=== PATIENT | female | born 1945 | race Caucasian/White ===

== ENCOUNTER 2017-07-31 13:38 | Inpatient (IN) | payer OTHER ==
[~2017-07-31] VITALS: Ht 162.6 cm; Wt 57.6 kg
[2017-07-31] MEDS ORDERED: Morphine Sulfate 4mg/ml Inj IVP ONE ×2 (13:45→15:45)
[2017-07-31] MEDS ORDERED: Ketorolac 30mg Inj IV ONE (13:45)
[2017-07-31] MEDS ORDERED: Gastrograffin 30ml ORAL PRN (13:45)
[2017-07-31] MEDS ORDERED: Isovue-300 100ml vial INJ PRN (13:45)
[2017-07-31 13:46] VITALS: BP 134/71
--- NOTE | 2017-07-31 14:09 | Emergency Room Report ---
History of Present Illness General Chief Complaint: Abdominal Pain Source: Patient (Robbie Paul M.D.) Present Illness HPI The patient presents with severe left flank pain. It began at 10:30 this AM. It got severe while she was trying to drive to her hospital. She stopped and she felt she was about to pass out. She called 911 from a gas station Paramedics transported patient here. She feels some nausea. The pain is constant and severe radiating to the L groin. There was no vomiting or diarrhea. There was no RUQ or epigastric pain. She denies fevers. She modified her diet in the past few days. No medicines taken for pain. The patient has a history of kidney stones. The last time she had one she had be hospitalized. She didn't have surgery for the stone. No chest pain, headache, rash, dysuria. The severity of pain causes some anxiety as it is out of control. (Robbie Paul M.D.) Allergies: Uncoded Allergies: SULFA (Allergy, Unknown, 07/31/17) Patient History Past Medical History: see triage record Social History: Denies: smoking Social History Narrative Reviewed Nursing Documentation: PMH: Agreed; PSxH: Agreed (Robbie Paul M.D.) Review of Systems All Other Systems: negative except mentioned in HPI (Robbie Paul M.D.) Physical Exam Vital Signs Date Time Temp Pulse Resp B/P (MAP) Pulse Ox O2 Delivery O2 Flow Rate FiO2 07/31/17 13:36 97.8 61 16 178/84 98 Room Air 97.9 Sp02 EP Interpretation: reviewed, normal General Appearance: GCS 15, moderate distress, other - pasty and in pain Head: normocephalic Eyes: bilateral eye normal inspection, bilateral eye PERRL ENT: moist mucus membranes Neck: supple Respiratory: lungs clear, normal breath sounds Cardiovascular #1: regular rate, rhythm Cardiovascular #2: 2+ radial (R), 2+ femoral (R), 2+ femoral (L) Gastrointestinal: normal inspection, normal bowel sounds, soft, no mass, non- distended, no rebound, tenderness - LLQ, scaphoid Genitourinary: no CVA tenderness Musculoskeletal: back normal, gait/station normal, normal range of motion Neurologic: alert, oriented x3, grossly normal Psychiatric: anxious Skin: warm/dry, other - pasty (Robbie Paul M.D.) Medical Decision Making Diagnostic Impression: Primary Impression: Ureteral calculus, left Additional Impressions: Elevated lipase Cystic disease of liver ER Course Patient with h/o renal stones with severe L flank pain. DDx: ureteral stone, aortic aneurism, pyelonephritis, diverticulitis amongst others. Patient in distress with pain. Evaluation with EKG, CT abd and pelvis and labs. Treatment with aggressive hydration and analgesia. Renal stone most likely as she identifies the pain as similar to when she had a stone previously. Patient much improved after meds. Awaiting CT. Labs with normal WBC. Elevated lipase of concern. Etiology unclear. No RUQ or epigastric tenderness. Pain increased again. Morphine repeated. Then Fentanyl given with some relief. Patient taken to CT. Signed out to Dr. Rollins. Dose of Flomax given. Laboratory Tests Test 07/31/17 13:45 07/31/17 14:30 White Blood Count 7.7 K/UL (4.8-10.8) Red Blood Count 4.68 M/UL (4.20-5.40) Hemoglobin 13.7 G/DL (12.0-16.0) Hematocrit 42.2 % (37.0-47.0) Mean Corpuscular Volume 90 FL (80-99) Mean Corpuscular Hemoglobin 29.2 PG (27.0-31.0) Mean Corpuscular Hemoglobin Concent 32.4 G/DL (32.0-36.0) Red Cell Distribution Width 13.1 % (11.6-14.8) Platelet Count 257 K/UL (150-450) Mean Platelet Volume 6.7 FL (6.5-10.1) Neutrophils (%) (Auto) 57.5 % (45.0-75.0) Lymphocytes (%) (Auto) 31.0 % (20.0-45.0) Monocytes (%) (Auto) 8.8 % (1.0-10.0) Eosinophils (%) (Auto) 1.2 % (0.0-3.0) Basophils (%) (Auto) 1.5 % (0.0-2.0) Prothrombin Time 10.4 SEC (9.30-11.50) Prothrombin Time INR 1.0 (0.9-1.1) PTT 24 SEC (23-33) Sodium Level 138 MMOL/L (136-145) Potassium Level 4.8 MMOL/L (3.5-5.1) Chloride Level 105 MMOL/L (98-107) Carbon Dioxide Level 24 MMOL/L (21-32) Anion Gap 9 mmol/L (5-15) Blood Urea Nitrogen 27 mg/dL (7-18) H Creatinine 1.0 MG/DL (0.55-1.30) Estimate Glomerular Filtration Rate mL/min (>60) Glucose Level 133 MG/DL (74-106) H Calcium Level 9.4 MG/DL (8.5-10.1) Total Bilirubin 0.9 MG/DL (0.2-1.0) Aspartate Amino Transferase (AST) 42 U/L (15-37) H Alanine Aminotransferase (ALT) 33 U/L (12-78) Alkaline Phosphatase 23 U/L (46-116) L Total Protein 7.7 G/DL (6.4-8.2) Albumin 3.6 G/DL (3.4-5.0) Globulin 4.1 g/dL Albumin/Globulin Ratio 0.9 (1.0-2.7) L Lipase 728 U/L (73-393) H Urine Color Pale yellow Urine Appearance Clear Urine pH 8 (4.5-8.0) Urine Specific [place] 1.015 (1.005-1.035) Urine Protein Negative (NEGATIVE) Urine Glucose (UA) Negative (NEGATIVE) Urine Ketones Negative (NEGATIVE) Urine Occult Blood Negative (NEGATIVE) Urine Nitrite Negative (NEGATIVE) Urine Bilirubin Negative (NEGATIVE) Urine Urobilinogen Normal MG/DL (0.0-1.0) Urine Leukocyte Esterase Negative (NEGATIVE) (Robbie Paul M.D.) ER Course The patient was endorsed to me by Dr. Paul. The CT of the abdomen pelvis read by radiology showed bilateral nephrolithiasis suspect 2 mm stone at the left UVJ ectasia of the left collecting system. Small amounts of fluid and edema in the peritoneal cavity. The thickening of the colon consistent with either underdistention or colitis. The patient was discussed with Dr. Syo No of her doctors' hospital facility. The the patient was initially to be transferred to [facility] was unable to arrange a timely transfer. The patient was subsequently discussed with Dr. Bernabe Tirmizi for inpatient management due to panel physician. Dr. Jeffrey Mustafa was contacted for urology consult Labs Test 07/31/17 13:45 07/31/17 14:30 White Blood Count 7.7 K/UL (4.8-10.8) Red Blood Count 4.68 M/UL (4.20-5.40) Hemoglobin 13.7 G/DL (12.0-16.0) Hematocrit 42.2 % (37.0-47.0) Mean Corpuscular Volume 90 FL (80-99) Mean Corpuscular Hemoglobin 29.2 PG (27.0-31.0) Mean Corpuscular Hemoglobin Concent 32.4 G/DL (32.0-36.0) Red Cell Distribution Width 13.1 % (11.6-14.8) Platelet Count 257 K/UL (150-450) Mean Platelet Volume 6.7 FL (6.5-10.1) Neutrophils (%) (Auto) 57.5 % (45.0-75.0) Lymphocytes (%) (Auto) 31.0 % (20.0-45.0) Monocytes (%) (Auto) 8.8 % (1.0-10.0) Eosinophils (%) (Auto) 1.2 % (0.0-3.0) Basophils (%) (Auto) 1.5 % (0.0-2.0) Prothrombin Time 10.4 SEC (9.30-11.50) Prothromb Time International Ratio 1.0 (0.9-1.1) Activated Partial Thromboplast Time 24 SEC (23-33) Sodium Level 138 MMOL/L (136-145) Potassium Level 4.8 MMOL/L (3.5-5.1) Chloride Level 105 MMOL/L (98-107) Carbon Dioxide Level 24 MMOL/L (21-32) Anion Gap 9 mmol/L (5-15) Blood Urea Nitrogen 27 mg/dL (7-18) Creatinine 1.0 MG/DL (0.55-1.30) Estimat Glomerular Filtration Rate mL/min (>60) Glucose Level 133 MG/DL (74-106) Calcium Level 9.4 MG/DL (8.5-10.1) Total Bilirubin 0.9 MG/DL (0.2-1.0) Aspartate Amino Transf (AST/SGOT) 42 U/L (15-37) Alanine Aminotransferase (ALT/SGPT) 33 U/L (12-78) Alkaline Phosphatase 23 U/L (46-116) Total Protein 7.7 G/DL (6.4-8.2) Albumin 3.6 G/DL (3.4-5.0) Globulin 4.1 g/dL Albumin/Globulin Ratio 0.9 (1.0-2.7) Lipase 728 U/L (73-393) Urine Color Pale yellow Urine Appearance Clear Urine pH 8 (4.5-8.0) Urine Specific [place] 1.015 (1.005-1.035) Urine Protein Negative (NEGATIVE) Urine Glucose (UA) Negative (NEGATIVE) Urine Ketones Negative (NEGATIVE) Urine Occult Blood Negative (NEGATIVE) Urine Nitrite Negative (NEGATIVE) Urine Bilirubin Negative (NEGATIVE) Urine Urobilinogen Normal MG/DL (0.0-1.0) Urine Leukocyte Esterase Negative (NEGATIVE) (Jeffery Rollins MD) EKG Diagnostic Results Rate: bradycardiac ST Segments: no acute changes (Robbie Paul M.D.) Rhythm Strip Diag. Results EP Interpretation: yes Rhythm: no PVC's, no ectopy, other - 59 (Robbie Paul M.D.) Last Vital Signs Date Time Temp Pulse Resp B/P (MAP) Pulse Ox O2 Delivery O2 Flow Rate FiO2 07/31/17 16:32 97.8 07/31/17 13:46 17 134/71 100 Room Air 07/31/17 13:36 61 Status: improved (Robbie Paul M.D.) Status: unchanged (Jeffery Rollins MD) Disposition: ADMITTED INPATIENT Condition: Serious Robbie Paul M.D. July 31, 2017 14:09 Jeffery Rollins MD July 31, 2017 18:37
[2017-07-31 14:19] LABS: BASOPHILS % (AUTO) 1.5 % (0.0-2.0); EOSINOPHILS % (AUTO) 1.2 % (0.0-3.0); HEMATOCRIT 42.2 % (37.0-47.0); HEMOGLOBIN 13.7 G/DL (12.0-16.0); MEAN CORPUSCULAR VOLUME 90 FL (80-99); MONOCYTES % (AUTO) 8.8 % (1.0-10.0); NEUTROPHILS % (AUTO) 57.5 % (45.0-75.0); PLATELET COUNT 257 K/UL (150-450); RED BLOOD COUNT 4.68 M/UL (4.20-5.40); RED CELL DISTRIBUTION WIDTH 13.1 % (11.6-14.8); WHITE BLOOD COUNT 7.7 K/UL (4.8-10.8)
[2017-07-31] MEDS ORDERED: NKM (14:25)
[2017-07-31 14:27] LABS: ANION GAP 9 mmol/L (5-15); BLOOD UREA NITROGEN 27 mg/dL (7-18); CALCIUM 9.4 MG/DL (8.5-10.1); CARBON DIOXIDE 24 MMOL/L (21-32); CHLORIDE 105 MMOL/L (98-107); POTASSIUM 4.8 MMOL/L (3.5-5.1); SODIUM 138 MMOL/L (136-145)
[2017-07-31 14:32] LABS: ALANINE AMINOTRANSFERASE 33 U/L (12-78); ALBUMIN 3.6 G/DL (3.4-5.0); ALBUMIN/GLOBULIN RATIO 0.9 (1.0-2.7); ALKALINE PHOSPHATASE 23 U/L (46-116); ASPARTATE AMINO TRANSFERASE 42 U/L (15-37); BILIRUBIN,TOTAL 0.9 MG/DL (0.2-1.0)
[2017-07-31 15:07] LABS: BILIRUBIN, URINE NEGATIVE (NEGATIVE); COLOR,URINE PALE YELLOW; GLUCOSE, URINE (UA) NEGATIVE (NEGATIVE); KETONES,URINE NEGATIVE (NEGATIVE); LEUKOCYTE ESTERASE ,URINE NEGATIVE (NEGATIVE); NITRITE,URINE NEGATIVE (NEGATIVE); PH,URINE 8 (4.5-8.0); PROTEIN,URINE NEGATIVE (NEGATIVE); UROBILINOGEN,URINE NORMAL MG/DL (0.0-1.0)
[2017-07-31 15:23] LABS: APPEARANCE,URINE CLEAR
[2017-07-31] MEDS ORDERED: fentaNYL 100 mcg/2 mL IV ONE (16:00)
[2017-07-31 17:00] VITALS: BP 134/71
[2017-07-31 18:33] VITALS: BP 163/73
[2017-07-31] MEDS ORDERED: Tamsulosin 0.4mg cap ORAL STA (20:43)
[2017-07-31 21:43] VITALS: BP 148/82
[2017-07-31] MEDS ORDERED: Morphine Sulfate 4mg/ml Inj IM PRN (22:45)
[2017-07-31] MEDS: Heparin 5000 units/ml inj SUBQ SCH (23:27)
[2017-08-01] VITALS: BP 140/83
[2017-08-01] MEDS: Morphine Sulfate 4mg/ml Inj IVP PRN ×2 (00:01→10:49)
--- NOTE | 2017-08-01 01:15 | History and Physical Report ---
DATE OF ADMISSION: 07/31/2017 HISTORY OF PRESENT ILLNESS: This is a 71-year-old female with a history of abdominal pain. She felt she had severe left flank pain. She had nausea. She was seen and worked up in the hospital. She has a history of previous urolithiasis. PAST MEDICAL HISTORY: None. ALLERGIES: Sulfa. MEDICATIONS: Home medications, none reported. REVIEW OF SYSTEMS: Denies any headaches, hematemesis, melena, or hematochezia. PHYSICAL EXAMINATION: GENERAL: Reveals a 71-year-old female. VITAL SIGNS: Blood pressure is 120/70, heart rate 84, , she is afebrile. HEENT: Unremarkable. LUNGS: Clear breath sounds bilaterally. ABDOMEN: Soft. NEUROLOGIC: Nonfocal. LABORATORY AND DIAGNOSTIC DATA: Lab testing shows normal CBC and BMP. Glucose 133. Lipase 728. Coagulations are negative. Hematology is normal. Urinalysis shows normal data. Imaging studies, the patient underwent CT of the abdomen and pelvis, however results of which are not known. IMPRESSION: 1. Left flank pain, suspect urolithiasis. 2. Elevated lipase. DISCUSSION: Admit to the hospital. We will start IV fluids, Flomax, IV fluid hydration. Continue home medications. Empiric antibiotics. We will consult Urology. Bernabe Dominguez M.D. DR: WINDY JOB#: [id number] CC:
[2017-08-01 04:00] VITALS: BP_SYST 120; BP_SYST 155; BP_DIAS 63; BP_DIAS 73
[2017-08-01 08:00] VITALS: BP 152/84
[2017-08-01 08:24] LABS: EOSINOPHILS % (AUTO) 1.4 % (0.0-3.0); HEMATOCRIT 35.4 % (37.0-47.0); HEMOGLOBIN 11.6 G/DL (12.0-16.0); LYMPHOCYTES % (AUTO) 27.4 % (20.0-45.0); MEAN CORPUSCULAR VOLUME 91 FL (80-99); MONOCYTES % (AUTO) 9.9 % (1.0-10.0); NEUTROPHILS % (AUTO) 60.3 % (45.0-75.0); PLATELET COUNT 204 K/UL (150-450); RED BLOOD COUNT 3.88 M/UL (4.20-5.40); RED CELL DISTRIBUTION WIDTH 13.4 % (11.6-14.8); WHITE BLOOD COUNT 6.3 K/UL (4.8-10.8)
[2017-08-01] MEDS ORDERED: Ketorolac 30mg Inj IV SCH (08:30)
[2017-08-01 08:36] LABS: ANION GAP 6 mmol/L (5-15); BLOOD UREA NITROGEN 20 mg/dL (7-18); CALCIUM 8.5 MG/DL (8.5-10.1); CARBON DIOXIDE 27 MMOL/L (21-32); CHLORIDE 106 MMOL/L (98-107); CREATININE 1.3 MG/DL (0.55-1.30); POTASSIUM 4.5 MMOL/L (3.5-5.1); SODIUM 139 MMOL/L (136-145)
--- NOTE | 2017-08-01 08:50 | Diagnostic Imaging Report ---
Clinical Indication: Left lower quadrant flank pain, nausea, vomiting times one Technique: Patient given oral contrast. IV administration nonionic contrast. Venous phase spiral acquisition obtained through the abdomen and pelvis. Multiplanar reconstructions were generated. Total dose length product 581 mGycm. CTDIvol(s) 13 mGy. Dose reduction achieved using automated exposure control Comparison: none Findings: 2 mm calculus projects at the left ureterovesical junction. There is left hydronephrosis, hydroureter, and perinephric fat stranding. A few small calculi are seen in the left lower pole collecting system. Calculi are also seen in the right renal collecting system. There are multiple bilateral subcentimeter low-attenuation renal lesions which are too small to characterize, most likely benign simple cortical cysts. No right ureteral calculi or right hydronephrosis demonstrated The liver demonstrates multiple cysts as well as multiple subcentimeter low-attenuation lesions which are too small to characterize. The gallbladder, bile ducts, pancreas, spleen, adrenals are unremarkable. No retroperitoneal or mesenteric mass or adenopathy. No pelvic mass or adenopathy. Trace free fluid is seen in the pelvis. No evidence of diverticulosis or diverticulitis. The appendix is normal. No small bowel distention or small bowel wall thickening. The distal esophagus, stomach, duodenum are unremarkable. Lumbar scoliosis and secondary degenerative spondylosis. There is generalized mild congestion of the mesenteric fat Lung bases demonstrate hyperinflation and some scarring. The bones demonstrate lumbar scoliotic deformity. There are secondary degenerative spondylosis changes. Impression: Positive for 2 mm calculus at the left ureterovesical junction. This results in [id number] left hydronephrosis and hydroureter, as well as perinephric fat stranding Bilateral nonobstructive renal calyceal calculi Trace free fluid in the pelvis, nonspecific but not physiologic in a postmenopausal female. Possibly related to the uropathy. Mild edema of the mesenteric fat, nonspecific as regards etiology Possible COPD changes Hepatic cysts. Subcentimeter low-attenuation hepatic lesions which are too small to characterize, most likely benign simple cysts or bile hamartomas Bilateral renal low-attenuation lesions which are too small to characterize, most likely benign simple cysts or bile hamartomas. Scoliosis and spondylosis This agrees with the preliminary interpretation provided overnight by [facility] teleradiology service. The CT scanner at [facility] is accredited by the [employer] and the scans are performed using protocols designed to limit radiation exposure to as low as reasonably achievable to attain images of sufficient resolution adequate for diagnostic evaluation.
[2017-08-01] MEDS: Heparin 5000 units/ml inj SUBQ SCH ×2 (09:00→21:00)
--- NOTE | 2017-08-01 10:51 | Pulmonology Progress Note ---
Assessment/Plan Assessment/Plan IMPRESSION: 1. Left flank pain, suspect urolithiasis. 2. Elevated lipase. DISCUSSION: Admit to the hospital. Continue IV fluids, Flomax, IV fluid hydration. Continue home medications. Empiric antibiotics. Await urology eval Check lipase in AM Subjective Interval Events: Continues to have gnawing left flank pain Constitutional: Reports: no symptoms HEENT: Repors: no symptoms Respiratory: Reports: no symptoms Cardiovascular: Reports: no symptoms Gastrointestinal/Abdominal: Reports: no symptoms Allergies: Coded Allergies: SULFA (SULFONAMIDE ANTIBIOTICS) (Verified Allergy, Intermediate, Hives, ) Objective Last 24 Hour Vital Signs Date Time Temp Pulse Resp B/P (MAP) Pulse Ox O2 Delivery O2 Flow Rate FiO2 08/01/17 08:00 97.1 107 16 152/84 96 97.1 08/01/17 04:00 97.7 90 20 155/73 96 97.7 08/01/17 00:00 97.5 77 20 140/83 96 97.5 07/31/17 21:55 98.4 66 14 148/82 98 Room Air 98.4 68 07/31/17 21:43 98.4 68 14 148/82 98 Room Air 98.4 07/31/17 19:56 98.5 66 14 163/73 98 Room Air 98.4 07/31/17 18:33 98.5 66 14 163/73 98 Room Air 98.5 07/31/17 17:00 98.0 71 19 134/71 99 Room Air 98.0 07/31/17 16:32 97.8 07/31/17 16:02 97.8 07/31/17 15:44 97.8 07/31/17 14:26 97.8 07/31/17 14:26 97.8 07/31/17 14:25 97.8 07/31/17 13:56 97.8 07/31/17 13:55 97.8 07/31/17 13:46 97.9 17 134/71 100 Room Air 97.9 07/31/17 13:36 97.8 61 16 178/84 98 Room Air 97.9 Intake and Output 07/31/17 08/01/17 19:00 07:00 Intake Total 1900 ml 1100 ml Balance 1900 ml 1100 ml Intake Oral 250 ml IV Total 1900 ml 850 ml # Voids 1 1 General Appearance: no acute distress HEENT: normocephalic Respiratory/Chest: chest wall non-tender, lungs clear Cardiovascular: normal peripheral pulses, normal rate Laboratory Tests 07/31/17 13:45: White Blood Count 7.7, Red Blood Count 4.68, Hemoglobin 13.7, Hematocrit 42.2, Mean Corpuscular Volume 90, Mean Corpuscular Hemoglobin 29.2, Mean Corpuscular Hemoglobin Concent 32.4, Red Cell Distribution Width 13.1, Platelet Count 257, Mean Platelet Volume 6.7, Neutrophils (%) (Auto) 57.5, Lymphocytes (%) (Auto) 31.0, Monocytes (%) (Auto) 8.8, Eosinophils (%) (Auto) 1.2, Basophils (%) (Auto ) 1.5, Prothrombin Time 10.4, Prothromb Time International Ratio 1.0, Activated Partial Thromboplast Time 24, Sodium Level 138, Potassium Level 4.8, Chloride Level 105, Carbon Dioxide Level 24, Anion Gap 9, Blood Urea Nitrogen 27H, Creatinine 1.0, Estimat Glomerular Filtration Rate , Glucose Level 133H, Calcium Level 9.4, Total Bilirubin 0.9, Aspartate Amino Transf (AST/SGOT) 42H, Alanine Aminotransferase (ALT/SGPT) 33, Alkaline Phosphatase 23L, Total Protein 7.7, Albumin 3.6, Globulin 4.1, Albumin/Globulin Ratio 0.9L, Lipase 728H 07/31/17 14:30: Urine Color Pale yellow, Urine Appearance Clear, Urine pH 8, Urine Specific [place] 1.015, Urine Protein Negative, Urine Glucose (UA) Negative, Urine Ketones Negative, Urine Occult Blood Negative, Urine Nitrite Negative, Urine Bilirubin Negative, Urine Urobilinogen Normal, Urine Leukocyte Esterase Negative 08/01/17 07:55: White Blood Count 6.3, Red Blood Count 3.88L, Hemoglobin 11.6L, Hematocrit 35.4L , Mean Corpuscular Volume 91, Mean Corpuscular Hemoglobin 29.8, Mean Corpuscular Hemoglobin Concent 32.8, Red Cell Distribution Width 13.4, Platelet Count 204, Mean Platelet Volume 7.6, Neutrophils (%) (Auto) 60.3, Lymphocytes (% ) (Auto) 27.4, Monocytes (%) (Auto) 9.9, Eosinophils (%) (Auto) 1.4, Basophils ( %) (Auto) 1.0, Sodium Level 139, Potassium Level 4.5, Chloride Level 106, Carbon Dioxide Level 27, Anion Gap 6, Blood Urea Nitrogen 20H, Creatinine 1.3, Estimat Glomerular Filtration Rate , Glucose Level 91, Calcium Level 8.5 Current Medications Medications (Trade) Dose Ordered Sig/Pito Route PRN Reason Start Time Stop Time Status Last Admin Dose Admin Acetaminophen (Tylenol) 650 mg Q4H PRN ORAL Mild Pain (Pain Scale 1-3) 07/31/17 22:45 08/30/17 22:44 Dextrose (Dextrose 50%) 25 ml STAT PRN IV Hypoglycemia 07/31/17 22:45 08/30/17 22:44 Dextrose (Dextrose 50%) 50 ml STAT PRN IV Hypoglycemia 07/31/17 22:45 08/30/17 22:44 Heparin Sodium (Porcine) (Heparin 5000 units/ml) 5,000 units EVERY 12 HOURS SUBQ 07/31/17 23:27 08/30/17 23:26 Levofloxacin 100 ml @ 100 mls/hr Q24H IVPB 07/31/17 23:00 08/07/17 22:59 Morphine Sulfate (Morphine Sulfate) 4 mg Q4H PRN IM For Pain 07/31/17 22:45 08/07/17 22:44 Morphine Sulfate (Morphine Sulfate) 4 mg Q4H PRN IVP For Pain 07/31/17 22:45 08/07/17 22:44 08/01/17 10:49 Ondansetron HCl (Zofran) 4 mg Q6H PRN IVP Nausea & Vomiting 07/31/17 22:45 08/30/17 22:44 Sodium Chloride 1,000 ml @ 125 mls/hr Q8H IVLG 07/31/17 23:44 08/30/17 23:43 08/01/17 00:14 Tamsulosin HCl (Flomax) 0.4 mg BEDTIME ORAL 07/31/17 23:28 08/30/17 23:27 08/01/17 00:00 Bernabe Dominguez MD August 01, 2017 10:51
[2017-08-01 12:00] VITALS: BP 159/88
[2017-08-01] MEDS ORDERED: Morphine Sulfate 4mg/ml Inj IVP PRN (13:30)
--- NOTE | 2017-08-01 14:37 | Cardiology Report ---
APPROVED REPORT EKG Measurement Heart [id number] IA [id number] Sinus bradycardia Possible Left atrial enlargement Borderline ECG
[2017-08-01] MEDS: Norco 5mg/325mg tab ORAL PRN ×2 (15:33→21:24)
--- NOTE | 2017-08-01 15:52 | Anethesia Preoperative Eval ---
Anesthesia Pre-op PMH/ROS General Date of Evaluation: August 01, 2017 Time of Evaluation: 17:24 Anesthesiologist: Kt ASA Score: ASA 3 Mallampati Score Class I : Soft palate, uvula, fauces, pillars visible Class II: Soft palate, uvula, fauces visible Class III: Soft palate, base of uvula visible Class IV: Only hard plate visible Mallampati Classification: Class II Surgeon: Robel Diagnosis: Urolitiasis Surgical Procedure: Cystocopy, Laser Lithotripsy Anesthesia History: none Family History: no anesthesia problems Allergies: Coded Allergies: SULFA (SULFONAMIDE ANTIBIOTICS) (Verified Allergy, Intermediate, Hives, ) Medications: see eMAR Past Medical History Cardiovascular: Reports: HTN Gastrointestinal/Genitourinary: Reports: other - Urolitiasis Hematology/Immune: Reports: other - Fibromyalgia Anesthesia Pre-op Phys. Exam Physician Exam Last Vital Signs Date Time Temp Pulse Resp B/P (MAP) Pulse Ox O2 Delivery O2 Flow Rate FiO2 08/01/17 12:00 96.6 74 18 159/88 97 96.6 07/31/17 21:55 Room Air Constitutional: NAD Neurologic: CN 2-12 intact Cardiovascular: RRR Respiratory: CTA Gastrointestinal: S/NT/ND Airway Exam Mallampati Score: Class II MO: full ROM: limited Teeth: missing, intact Anesthesia Pre-op A/P Labs Hematology Test 08/01/17 07:55 White Blood Count 6.3 K/UL (4.8-10.8) Red Blood Count 3.88 M/UL (4.20-5.40) L Hemoglobin 11.6 G/DL (12.0-16.0) L Hematocrit 35.4 % (37.0-47.0) L Mean Corpuscular Volume 91 FL (80-99) Mean Corpuscular Hemoglobin 29.8 PG (27.0-31.0) Mean Corpuscular Hemoglobin Concent 32.8 G/DL (32.0-36.0) Red Cell Distribution Width 13.4 % (11.6-14.8) Platelet Count 204 K/UL (150-450) Mean Platelet Volume 7.6 FL (6.5-10.1) Neutrophils (%) (Auto) 60.3 % (45.0-75.0) Lymphocytes (%) (Auto) 27.4 % (20.0-45.0) Monocytes (%) (Auto) 9.9 % (1.0-10.0) Eosinophils (%) (Auto) 1.4 % (0.0-3.0) Basophils (%) (Auto) 1.0 % (0.0-2.0) Chemistry Test 08/01/17 07:55 Sodium Level 139 MMOL/L (136-145) Potassium Level 4.5 MMOL/L (3.5-5.1) Chloride Level 106 MMOL/L (98-107) Carbon Dioxide Level 27 MMOL/L (21-32) Anion Gap 6 mmol/L (5-15) Blood Urea Nitrogen 20 mg/dL (7-18) H Creatinine 1.3 MG/DL (0.55-1.30) Estimat Glomerular Filtration Rate mL/min (>60) Glucose Level 91 MG/DL (74-106) Calcium Level 8.5 MG/DL (8.5-10.1) Risk Assessment & Plan Assessment: ASA 3 Plan: GA Status Change Before Surgery: No Pre-Antibiotics Drug: Reginaldo Jin MD August 01, 2017 15:52
[2017-08-01 16:00] VITALS: BP 152/84
[2017-08-01] MEDS ORDERED: Tubing IV Secondary IV ONE (17:24)
[2017-08-01 20:00] VITALS: BP 148/86
[2017-08-01] MEDS: Tamsulosin 0.4mg cap ORAL SCH ×2 (21:24)
--- NOTE | 2017-08-01 23:30 | Consultation ---
DATE OF CONSULTATION: 08/01/2017 UROLOGY CONSULTATION ATTENDING/CONSULTING PHYSICIAN: Bernabe Dominguez M.D. CHIEF COMPLAINT/HISTORY OF PRESENT ILLNESS: I was asked by Dr. Dominguez to evaluate this 71-year-old female regarding history of a left ureteral stone with hydronephrosis and colic secondary to same. Briefly, the patient has a history of previous nephrolithiasis. She presented to the ER with a history of left-sided abdominal pain, colic, and nausea. Workup revealed a 2 mm stone in the distal left ureter with moderate hydronephrosis. There were also nonobstructing stones in both kidneys. The patient had intractable pain and was admitted and as such I was asked to evaluate the patient. PAST MEDICAL HISTORY: Nephrolithiasis. PAST SURGICAL HISTORY: None. MEDICATIONS: Please see the chart for current medications and administration details. The patient is receiving Toradol and morphine for pain control. ALLERGIES: Include sulfa drugs. SOCIAL HISTORY: Unremarkable for tobacco, alcohol, or drug use. FAMILY HISTORY: Noncontributory. REVIEW OF SYSTEMS: A 12-system review of systems is essentially unremarkable outside what is described above. PHYSICAL EXAMINATION: GENERAL: The patient is an older female, awake, alert, oriented, and in no obvious distress. HEENT: NC/AT. EOMI. Oropharynx clear. NECK: Supple. Full range of motion. CHEST: Within normal limits. ABDOMEN: Soft, nontender, and nondistended. EXTREMITIES: Warm and well perfused. No cyanosis, clubbing, or edema. BACK: No current CVA tenderness to percussion. NEUROLOGIC: Grossly nonfocal. LABORATORY DATA: White blood cell count 6.3, hematocrit 35.4, and platelets 204,000. PT 10.4, INR 1.0, and PTT 24 . Sodium 139, potassium 4.5, chloride 106, bicarbonate 27, BUN 20, creatinine 1.3, glucose 91, and calcium 8.5. LFTs within normal limits. Urinalysis, specific gravity of 1.015 and pH 8.0. Dip test negative for all findings. DIAGNOSTIC IMAGING: CT scan of the abdomen and pelvis reveals a 2 mm stone at the left ureterovesical junction with left hydroureteral nephrosis and stranding secondary to same. There were few small calculi in the left lower pole collecting system and in the right lower pole renal collecting system. There are some small renal cysts noted. The liver also demonstrates multiple cysts. ASSESSMENT AND PLAN: In summary, the patient is a 71-year-old female with a history of nephrolithiasis presenting with left abdominal pain and colic. Workup reveals a 2 mm stone in the distal left ureter with [id number] hydroureteronephrosis secondary to same and some nonobstructing stones. Physical exam is unremarkable for costovertebral angle tenderness at this time. Laboratory data is unremarkable. Diagnostic imaging reveals findings described above. I discussed these findings at length with the patient and her at the bedside. The risks, benefits, and alternatives of ureteroscopy and laser lithotripsy and possible double-J stent placement were discussed with them and the patient understood. She will determine in the next hour or so whether she wishes to go home and try to pass the stone spontaneously or whether she wishes to go for the procedure described above. She will be kept NPO past midnight if she to stay and we are scheduled for the operating room for tomorrow morning if necessary. Thank you for allowing me to participate in the care of this nice lady. Please do not hesitate to contact me with any questions that you may further have regarding her care. I will be happy to see her with you as needed. Jeffrey Mustafa M.D. DR: BINH JOB#: [id number] CC:
[2017-08-02] VITALS: BP 200/111
[2017-08-02 01:20] VITALS: BP 198/106
[2017-08-02 01:25] VITALS: BP 185/96
[2017-08-02 01:30] VITALS: BP 187/98
[2017-08-02] MEDS: Norco 5mg/325mg tab ORAL PRN ×2 (03:24→09:27)
[2017-08-02 04:00] VITALS: BP 159/110
[2017-08-02 07:31] LABS: BASOPHILS % (AUTO) 0.9 % (0.0-2.0); EOSINOPHILS % (AUTO) 2.9 % (0.0-3.0); HEMATOCRIT 38.2 % (37.0-47.0); HEMOGLOBIN 12.5 G/DL (12.0-16.0); LYMPHOCYTES % (AUTO) 32.7 % (20.0-45.0); MEAN CORPUSCULAR VOLUME 91 FL (80-99); MONOCYTES % (AUTO) 9.3 % (1.0-10.0); NEUTROPHILS % (AUTO) 54.2 % (45.0-75.0); PLATELET COUNT 219 K/UL (150-450); RED CELL DISTRIBUTION WIDTH 13.3 % (11.6-14.8); WHITE BLOOD COUNT 5.9 K/UL (4.8-10.8)
[2017-08-02 07:42] LABS: ANION GAP 7 mmol/L (5-15); BLOOD UREA NITROGEN 20 mg/dL (7-18); CALCIUM 9.1 MG/DL (8.5-10.1); CARBON DIOXIDE 29 MMOL/L (21-32); CHLORIDE 104 MMOL/L (98-107); POTASSIUM 4.8 MMOL/L (3.5-5.1); SODIUM 140 MMOL/L (136-145)
--- NOTE | 2017-08-02 07:53 | Pulmonology Progress Note ---
Assessment/Plan Assessment/Plan IMPRESSION: 1. Left flank pain, suspect urolithiasis. 2. Elevated lipase. DISCUSSION: Pt declines antibiotics She also declined cystoscopy Wants to go home Will dc on Toradol and Noprco Subjective Interval Events: declines cystoscopy Constitutional: Reports: no symptoms HEENT: Repors: no symptoms Respiratory: Reports: no symptoms Cardiovascular: Reports: no symptoms Gastrointestinal/Abdominal: Reports: no symptoms Allergies: Coded Allergies: SULFA (SULFONAMIDE ANTIBIOTICS) (Verified Allergy, Intermediate, Hives, ) Objective Last 24 Hour Vital Signs Date Time Temp Pulse Resp B/P (MAP) Pulse Ox O2 Delivery O2 Flow Rate FiO2 08/02/17 04:00 98.1 89 18 159/110 98 98.1 08/02/17 01:38 187/98 08/02/17 01:30 187/98 08/02/17 01:25 185/96 08/02/17 01:20 198/106 08/02/17 00:00 98.2 93 19 200/111 98 98.2 08/01/17 20:00 98.7 82 19 148/86 100 98.7 08/01/17 16:00 97.1 107 16 152/84 96 97.1 08/01/17 12:00 96.6 74 18 159/88 97 96.6 08/01/17 08:00 97.1 107 16 152/84 96 97.1 Intake and Output 08/01/17 08/02/17 19:00 07:00 Intake Total 600 ml Balance 600 ml Intake Oral 600 ml # Voids 5 4 General Appearance: no acute distress HEENT: normocephalic Respiratory/Chest: chest wall non-tender, lungs clear Cardiovascular: normal peripheral pulses Laboratory Tests 08/01/17 07:55: White Blood Count 6.3, Red Blood Count 3.88L, Hemoglobin 11.6L, Hematocrit 35.4L , Mean Corpuscular Volume 91, Mean Corpuscular Hemoglobin 29.8, Mean Corpuscular Hemoglobin Concent 32.8, Red Cell Distribution Width 13.4, Platelet Count 204, Mean Platelet Volume 7.6, Neutrophils (%) (Auto) 60.3, Lymphocytes (% ) (Auto) 27.4, Monocytes (%) (Auto) 9.9, Eosinophils (%) (Auto) 1.4, Basophils ( %) (Auto) 1.0, Sodium Level 139, Potassium Level 4.5, Chloride Level 106, Carbon Dioxide Level 27, Anion Gap 6, Blood Urea Nitrogen 20H, Creatinine 1.3, Estimat Glomerular Filtration Rate , Glucose Level 91, Calcium Level 8.5 08/02/17 05:55: White Blood Count 5.9, Red Blood Count 4.20, Hemoglobin 12.5, Hematocrit 38.2, Mean Corpuscular Volume 91, Mean Corpuscular Hemoglobin 29.7, Mean Corpuscular Hemoglobin Concent 32.7, Red Cell Distribution Width 13.3, Platelet Count 219, Mean Platelet Volume 7.0, Neutrophils (%) (Auto) 54.2, Lymphocytes (%) (Auto) 32.7, Monocytes (%) (Auto) 9.3, Eosinophils (%) (Auto) 2.9, Basophils (%) (Auto ) 0.9, Sodium Level 140, Potassium Level 4.8, Chloride Level 104, Carbon Dioxide Level 29, Anion Gap 7, Blood Urea Nitrogen 20H, Creatinine 1.0, Estimat Glomerular Filtration Rate , Glucose Level 103, Calcium Level 9.1, Lipase 483H Current Medications Medications (Trade) Dose Ordered Sig/Pito Route PRN Reason Start Time Stop Time Status Last Admin Dose Admin Acetaminophen (Tylenol) 650 mg Q4H PRN ORAL Mild Pain (Pain Scale 1-3) 07/31/17 22:45 08/30/17 22:44 Acetaminophen/ Hydrocodone Bitart ([place] 5/325) 1 tab Q6H PRN ORAL Moderate Pain (Pain Scale 4-6) 08/01/17 13:25 08/08/17 13:24 08/02/17 03:24 Al Hydroxide/Mg Hydroxide (Mylanta) 15 ml Q6H PRN ORAL upset stomach 08/01/17 16:45 08/31/17 16:44 08/02/17 01:04 Clonidine HCl (Catapres Tab) 0.1 mg Q6H PRN ORAL For High Blood Pressure 08/02/17 01:30 09/01/17 01:29 08/02/17 01:38 Dextrose (Dextrose 50%) 25 ml STAT PRN IV Hypoglycemia 07/31/17 22:45 08/30/17 22:44 Dextrose (Dextrose 50%) 50 ml STAT PRN IV Hypoglycemia 07/31/17 22:45 08/30/17 22:44 Heparin Sodium (Porcine) (Heparin 5000 units/ml) 5,000 units EVERY 12 HOURS SUBQ 07/31/17 23:27 08/30/17 23:26 Levofloxacin 100 ml @ 100 mls/hr Q24H IVPB 07/31/17 23:00 08/07/17 22:59 Morphine Sulfate (Morphine Sulfate) 4 mg Q4H PRN IVP Severe Pain (Pain Scale 7-10) 08/01/17 13:30 08/07/17 13:29 Ondansetron HCl (Zofran) 4 mg Q6H PRN IVP Nausea & Vomiting 07/31/17 22:45 08/30/17 22:44 Sodium Chloride 1,000 ml @ 125 mls/hr Q8H IVLG 07/31/17 23:44 08/30/17 23:43 08/01/17 00:14 Tamsulosin HCl (Flomax) 0.4 mg BEDTIME ORAL 07/31/17 23:28 08/30/17 23:27 08/01/17 21:24 Bernabe Dominguez MD August 02, 2017 07:53
[2017-08-02] MEDS ORDERED: NORCO 5-325 TA1 EACH ORAL (07:55)
[2017-08-02] MEDS ORDERED: KETOROLAC TROME10 MG PO (07:55)
[2017-08-02] MEDS ORDERED: FLOMAX0.4 MG ORAL (07:55)
[2017-08-02 08:00] VITALS: BP 143/92
[2017-08-02] MEDS: Heparin 5000 units/ml inj SUBQ SCH (09:00)
--- NOTE | 2017-08-03 13:43 | Discharge Summary ---
Discharge Summary Discharge Summary Discharge Summary DATE OF ADMISSION: 07/31/2017 DATE OF DISCHARGE: 08/02/2017 CONSULTANTS: Dr. Jeffrey Mustafa BRIEF HOSPITAL COURSE: Patient is a 71-year-old female, with history of kidney stones, presented to ED complaining of severe left flank pain. Symptoms started in the morning of admission. Symptoms got severe when she was driving to the hospital. Pain was so severe, she stopped and called 911. She had some nausea. Pain was constant and radiating to the left groin. There was no vomiting, no diarrhea no fever. On evaluation at ED, there was no leukocytosis, however lipase was elevated 728. CT of the abdomen and pelvis showed nephrolithiasis. There was a 2 mm calculus at the left ureterovesical junction. There was [id number] left hydronephrosis with hydroureter. She was admitted for evaluation of left flank pain and elevated lipase. She was given IV fluids and was started on Flomax. She was given pain management. She was seen by urologist. She was advised risks, benefits, and alternatives of ureteroscopy and laser lithotripsy and possible double-J stent placement. Patient was undecided. She was kept nothing by mouth. She eventually refused procedures and wished to go home and try to pass the stone spontaneously. She refused antibiotic. She was eventually discharged home. FINAL DIAGNOSES: Left Pain, secondary to urolithiasis. Elevated lipase DISPOSITION: Patient was discharged home. DISCHARGE MEDICATIONS: Refer to Discharge Medication List. DISCHARGE INSTRUCTIONS: Follow up with PCP in a week. I have been assigned to dictate discharge summary on this account, and I was not involved in the patient's management. Maria A Castro NP August 03, 2017 13:43
== END 2017-08-02 09:45 | disposition home or self-care (01) | DRG 694 ==
LOC: EDBD 13:38 → EMR 15:40 → 4E 21:21 → EDBEDREQ 21:42
DX: N13.2 Hydronephrosis with renal and ureteral calculous obstruction (principal); Z88.2 Allergy status to sulfonamides; R74.8 Abnormal levels of other serum enzymes
CPT/HCPCS: 36415; 74177; 80048; 80053; 81003; 83690; 85025; 85610; 85730; 93005; 99285; J2405

== ENCOUNTER 2019-09-07 14:28 | Emergency (ER) | payer OTHER ==
[~2019-09-07] VITALS: Ht 163.8 cm; Wt 54.9 kg
[~2019-09-07 14:28] MED LIST: FLOMAX0.4 MG ORAL; KETOROLAC TROME10 MG PO; NKM; NORCO 5-325 TA1 EACH ORAL
[2019-09-07 14:45] VITALS: BP 182/109
[2019-09-07] MEDS ORDERED: Omnipaque-300 100ml vial INJ PRN (15:00)
--- NOTE | 2019-09-07 15:31 | Emergency Room Report ---
History of Present Illness General Chief Complaint: Back Pain-No Injury Source: Medical Record (Sidra Raymundo) Present Illness HPI 73 YO female presents to the ED c/o 11/27 in severity left sided back pain that is intermittent and exacerbated with exertion. Pt. also reports pain radiation around to the left part of her stomach. Pt. reports feeling asymmetrically distended on the left lower side of the abdomen x 1 month. She denies fevers or chills. She reports hx. of renal calculi, pancreatitis, scoliosis and fibromyalgia. Pt. denies trauma or fall. She reports on occasion she will have burning pain and paresthesia of the left lower back with radiation toward the upper part of the left buttock. She denies radiation down the leg. She denies incontinence or urinary retention. She denies constipation or diarrhea. She denies history of hernia. She denies dysuria, hematuria or urinary frequency. (Sidra Raymundo) Allergies: Coded Allergies: SULFA (SULFONAMIDE ANTIBIOTICS) (Verified Allergy, Intermediate, Hives, ) COVID-19 Screening Contact w/high risk pt: No Recent Travel to affected area: No Experienced COVID-19 symptoms?: No COVID-19 Testing performed [place]NAGER [place]: No (Sidra Raymundo) Patient History Past Medical History: see triage record Past Surgical History: none Pertinent Family History: none Now: No Reviewed Nursing Documentation: PMH: Agreed; PSxH: Agreed (Sidra Raymundo) Nursing Documentation-PMH Past Medical History: No History, Except For Hx Cardiac Problems: No Hx Cancer: No Hx Gastrointestinal Problems: No Hx Neurological Problems: No - fibromyalgia (Sidra Raymundo) Review of Systems All Other Systems: negative except mentioned in HPI (Sidra Raymundo) Physical Exam Vital Signs Date Time Temp Pulse Resp B/P (MAP) Pulse Ox O2 Delivery O2 Flow Rate FiO2 09/07/19 14:37 98.2 93 18 182/109 (133) 97 Room Air Sp02 EP Interpretation: reviewed, normal General Appearance: no apparent distress, alert, GCS 15, non-toxic Head: normocephalic, atraumatic Eyes: bilateral eye normal inspection, bilateral eye PERRL ENT: hearing grossly normal, normal voice Neck: full range of motion Respiratory: lungs clear, normal breath sounds, no wheezing, speaking full sentences Cardiovascular #1: regular rate, rhythm Gastrointestinal: normal bowel sounds, soft, no peritonitis, non-distended, no guarding, other - diffuse ttp in the lower left quadrant. no McBurney's point tenderness, negative dove's, NO pulsatile mass. Genitourinary: normal inspection, no CVA tenderness Musculoskeletal: normal range of motion, gait/station normal, non-tender - no midline spinous process tenderness or step-off, other - abnormal spinal curvature laterally. Neurologic: alert, motor strength/tone normal, oriented x3, sensory intact, responsive, speech normal Psychiatric: judgement/insight normal Skin: no rash, normal color (Sidra Raymundo) Medical Decision Making PA Attestation Dr. Kc is my supervising Physician whom patient management has been discussed with. (Sidra Raymundo) Medicare Attestation The history of Ilene Escalante has been reviewed and management options for her have been examined and discussed by Jeffery Kc. I have personally examined and interviewed the patient. (Jeffery Kc MD) Diagnostic Impression: Primary Impression: Colitis Additional Impressions: Scoliosis Qualified Codes: M41.35 - Thoracogenic scoliosis, thoracolumbar region Renal calculi Hepatic cyst ER Course 73 YO female presents to the ED c/o 11/27 in severity left sided back pain that is intermittent and exacerbated with exertion. Pt. also reports pain radiation around to the left part of her stomach. Pt. reports feeling asymmetrically distended on the left lower side of the abdomen x 1 month. She denies fevers or chills. She reports hx. of renal calculi, pancreatitis, scoliosis and fibromyalgia. Pt. denies trauma or fall. She reports on occasion she will have burning pain and paresthesia of the left lower back with radiation toward the upper part of the left buttock. She denies radiation down the leg. She denies incontinence or urinary retention. She denies constipation or diarrhea. She denies history of hernia. She denies dysuria, hematuria or urinary frequency. Ddx considered but are not limited to Diverticulitis, acute appendicitis, diarrhea,UC, PUD, GE, pancreatitis, gallstone Vital signs: are WNL, pt. is afebrile H&PE are most consistent with Hypovolemia and diarrhea ORDERS: CBC, CMP, lipase, UA: Unremarkable ED INTERVENTIONS: -- 1000NS, -I do not identify an emergent condition at this time. With current presentation , pt. is stable for close outpatient follow up and conservative treatment. D/ w pt. to return promptly to ED with worsening or new symptoms.- Pt. verbalizes' understanding and agreement with proposed treatment plan. DISCHARGE: At this time pt. is stable for d/c to home. Will provide printed patient care instructions, and any necessary prescriptions. Care plan and follow up instructions have been discussed with the patient prior to discharge. Labs Test 09/07/19 15:28 09/07/19 18:42 White Blood Count 4.9 K/UL (4.8-10.8) Red Blood Count 4.85 M/UL (4.20-5.40) Hemoglobin 14.9 G/DL (12.0-16.0) Hematocrit 43.5 % (37.0-47.0) Mean Corpuscular Volume 90 FL (80-99) Mean Corpuscular Hemoglobin 30.6 PG (27.0-31.0) Mean Corpuscular Hemoglobin Concent 34.1 G/DL (32.0-36.0) Red Cell Distribution Width 14.3 % (11.6-14.8) Platelet Count 248 K/UL (150-450) Mean Platelet Volume 6.8 FL (6.5-10.1) Neutrophils (%) (Auto) 59.0 % (45.0-75.0) Lymphocytes (%) (Auto) 31.2 % (20.0-45.0) Monocytes (%) (Auto) 7.4 % (1.0-10.0) Eosinophils (%) (Auto) 0.8 % (0.0-3.0) Basophils (%) (Auto) 1.6 % (0.0-2.0) Sodium Level 138 MMOL/L (136-145) Potassium Level 4.1 MMOL/L (3.5-5.1) Chloride Level 102 MMOL/L (98-107) Carbon Dioxide Level 28 MMOL/L (21-32) Anion Gap 8 mmol/L (5-15) Blood Urea Nitrogen 17 mg/dL (7-18) Creatinine 0.9 MG/DL (0.55-1.30) Estimat Glomerular Filtration Rate > 60 mL/min (>60) Glucose Level 110 MG/DL (74-106) Calcium Level 9.0 MG/DL (8.5-10.1) Total Bilirubin 0.4 MG/DL (0.2-1.0) Aspartate Amino Transf (AST/SGOT) 18 U/L (15-37) Alanine Aminotransferase (ALT/SGPT) 12 U/L (12-78) Alkaline Phosphatase 24 U/L (46-116) Total Protein 7.7 G/DL (6.4-8.2) Albumin 3.7 G/DL (3.4-5.0) Globulin 4.0 g/dL Albumin/Globulin Ratio 0.9 (1.0-2.7) Lipase 326 U/L (73-393) Urine Color Pale yellow Urine Appearance Clear Urine pH 5 (4.5-8.0) Urine Specific [place] 1.010 (1.005-1.035) Urine Protein Negative (NEGATIVE) Urine Glucose (UA) Negative (NEGATIVE) Urine Ketones Negative (NEGATIVE) Urine Blood Negative (NEGATIVE) Urine Nitrite Negative (NEGATIVE) Urine Bilirubin Negative (NEGATIVE) Urine Urobilinogen Normal MG/DL (0.0-1.0) Urine Leukocyte Esterase Negative (NEGATIVE) (Sidra Raymundo) CT/MRI/US Diagnostic Results CT/MRI/US Diagnostic Results : Imaging Test Ordered: CT Abdomen and Pelvis w. Contrast Impression " IMPRESSION: 1. Fatty infiltration of liver. 2. Simple hepatic cyst. 3. Bilateral nonobstructing renal calculi which are subcentimeter in size. 4. Bilateral extrarenal pelves. 5. Diffuse wall thickening of the transverse colon extending to the descending colon and the sigmoid colon raising concern for inflammatory or infectious etiologies. Ischemic etiology is felt to be unlikely. 6. Fibroid uterus." (Sidra Raymundo) Last Vital Signs Date Time Temp Pulse Resp B/P (MAP) Pulse Ox O2 Delivery O2 Flow Rate FiO2 09/07/19 14:37 98.2 93 18 182/109 (133) 97 Room Air (Sidra Raymundo) Disposition: HOME, SELF-CARE Condition: Stable Scripts Lactobac Cmb #3/Fos/Pantethine (PROBIOTIC & ACIDOPHILUS CAP) 1 Each Capsule 1 EACH PO BID, #30 CAP Prov: Sidra Raymundo 09/07/19 Ciprofloxacin* (CIPRO*) 500 Mg Tablet 500 MG PO BID for 7 Days, #14 TAB Prov: Sidra Raymundo 09/07/19 Referrals: NON PHYSICIAN (PCP) Patient Instructions: Back Pain, Adult, Colitis Additional Instructions: Take medications as directed. Follow up with a Primary Care Provider in 3-5 days, even if your symptoms have resolved. Evaluation by the following specialties are recommended: Pulmonology, Spinal Orthopedic, and GI. Return sooner to ED if new symptoms occur, or current symptoms become worse. - Please note that this Emergency Department Report was dictated using [employer] java developer technology software, occasionally this can lead to erroneous entry secondary to interpretation by the dictation equipment. Sidra Raymundo Sep 07, 2019 15:31 Jeffery Kc MD Sep 19, 2019 15:42
[2019-09-07 15:59] LABS: BASOPHILS % (AUTO) 1.6 % (0.0-2.0); EOSINOPHILS % (AUTO) 0.8 % (0.0-3.0); HEMATOCRIT 43.5 % (37.0-47.0); HEMOGLOBIN 14.9 G/DL (12.0-16.0); LYMPHOCYTES % (AUTO) 31.2 % (20.0-45.0); MEAN CORPUSCULAR VOLUME 90 FL (80-99); MONOCYTES % (AUTO) 7.4 % (1.0-10.0); PLATELET COUNT 248 K/UL (150-450); RED BLOOD COUNT 4.85 M/UL (4.20-5.40); RED CELL DISTRIBUTION WIDTH 14.3 % (11.6-14.8); WHITE BLOOD COUNT 4.9 K/UL (4.8-10.8)
[2019-09-07 16:04] LABS: ANION GAP 8 mmol/L (5-15); BLOOD UREA NITROGEN 17 mg/dL (7-18); CARBON DIOXIDE 28 MMOL/L (21-32); CHLORIDE 102 MMOL/L (98-107); CREATININE 0.9 MG/DL (0.55-1.30); POTASSIUM 4.1 MMOL/L (3.5-5.1); SODIUM 138 MMOL/L (136-145)
[2019-09-07 16:08] LABS: ALANINE AMINOTRANSFERASE 12 U/L (12-78); ALBUMIN 3.7 G/DL (3.4-5.0); ALBUMIN/GLOBULIN RATIO 0.9 (1.0-2.7); ALKALINE PHOSPHATASE 24 U/L (46-116); ASPARTATE AMINO TRANSFERASE 18 U/L (15-37); BILIRUBIN,TOTAL 0.4 MG/DL (0.2-1.0)
--- NOTE | 2019-09-07 17:36 | Diagnostic Imaging Report ---
ADDENDUM - Added by Napoleon Tony MD on 09/07/2019 6:32 PM (-07:00) The original report had typographic errors within it. The report should read as follows: EXAM: CT Abdomen and Pelvis With Intravenous Contrast CLINICAL HISTORY: Abdominal pain. TECHNIQUE: Axial computed tomography images of the abdomen and pelvis with intravenous contrast. CTDI is 4.00 mGy and DLP is 189.2 mGy-cm. One or more of the following dose reduction techniques were used: automated exposure control, adjustment of the mA and/or kV according to patient size, use of iterative reconstruction technique. COMPARISON: 07/31/2017. FINDINGS: Lung bases: Mild COPD. Scarring at the right lung base. Minimal subsegmental atelectasis at the left lung base. COPD. Heart: The heart is normal in size. Mediastinum: Probable minimal distal esophagitis. ABDOMEN: Liver: Diffuse fatty infiltration of the liver is noted. The liver and the spleen enhance uniformly. Scattered hepatic hypodensities are noted, the largest of which accounts measures compatible with simple cyst. Gallbladder and bile ducts: See below. Pancreas: See below. Spleen: See above. Adrenals: The adrenal glands, the head, body, tail of the pancreas and the gallbladder are unremarkable. Kidneys and ureters: Both kidneys are shown to excrete contrast bilaterally. Bilateral extrarenal pelves are noted. Several nonobstructing right renal calculi are noted, the largest of which is located in the midpole region measuring 0.2 cm. A 0.4 cm nonobstructing calculus in the lower pole region left kidney is noted. Additional subcentimeter smaller nonobstructing calculi in the lower pole region of the left kidney are noted. Stomach and bowel: Moderate quantity of stool throughout the colon. No evidence of bowel obstruction. Minimal diffuse wall thickening of the transverse colon extending to the descending colon to sigmoid colon segments. PELVIS: Appendix: No findings to suggest acute appendicitis. Bladder: The bladder is unremarkable. Reproductive: Bulbous uterus suggestive of fibroids. ABDOMEN and PELVIS: Intraperitoneal space: Unremarkable. No free air. No significant fluid collection. Bones/joints: Moderate to severe degenerative disc disease of the spinal column is noted. Moderate osteoarthritic changes about the sacroiliac joints. Severe levoscoliosis of the thoracolumbar spine. Sacrum and coccyx are unremarkable. No acute fracture. No dislocation. Soft tissues: Ischiorectal fat is clean. Vasculature: Atherosclerotic disease of the abdominal aorta. Flow is demonstrated within the celiac, SMA, the renal arteries, and HUGH. No abdominal aortic aneurysm. Lymph nodes: No retroperitoneal lymphadenopathy. No pelvic or inguinal lymphadenopathy. Other findings: Inflammatory and infectious etiology should be considered. Ischemic etiology is felt to be unlikely. Pelvic phleboliths. IMPRESSION: 1. Fatty infiltration of liver. 2. Simple hepatic cyst. 3. Bilateral nonobstructing renal calculi which are subcentimeter in size. 4. Bilateral extrarenal pelves. 5. Diffuse wall thickening of the transverse colon extending to the descending colon and the sigmoid colon raising concern for inflammatory or infectious etiologies. Ischemic etiology is felt to be unlikely. 6. Fibroid uterus. EXAM: CT Abdomen and Pelvis With Intravenous Contrast CLINICAL HISTORY: Abdominal pain. TECHNIQUE: Axial computed tomography images of the abdomen and pelvis with intravenous contrast. CTDI is 4.00 mGy and DLP is 189.2 mGy-cm. One or more of the following dose reduction techniques were used: automated exposure control, adjustment of the mA and/or kV according to patient size, use of iterative reconstruction technique. COMPARISON: 07/31/2017. FINDINGS: Lung bases: Mild COPD. Scarring at the right lung base. Minimal subsegmental atelectasis at the left lung base. COPD. Heart: The heart is normal in size. Mediastinum: Probable minimal distal esophagitis. ABDOMEN: Liver: Diffuse fatty infiltration of the liver is noted. The liver and the spleen enhance uniformly. Scattered hepatic hypodensities are noted, the largest of which accounts measures compatible with simple cyst. Gallbladder and bile ducts: See below. Pancreas: See below. Spleen: See above. Adrenals: The adrenal glands, the head, body, tail of the pancreas and the gallbladder are unremarkable. Kidneys and ureters: Both kidneys are shown to excrete contrast bilaterally. Bilateral extrarenal pelves are noted. Several nonobstructing right renal calculi are noted, the largest of which is located in the midpole region measuring 0.2 cm. A 0.4 cm nonobstructing calculus in the lower pole region left kidney is noted. Additional subcentimeter smaller nonobstructing calculi in the lower pole region of the left kidney are noted. Stomach and bowel: Moderate quantity of stool throughout the colon. No evidence of bowel obstruction. Minimal diffuse wall thickening of the transverse colon extending to the descending colon to sigmoid colon segments. PELVIS: Appendix: No findings to suggest acute appendicitis. Bladder: The bladder is unremarkable. Reproductive: Bulbous uterus suggestive of fibroids. ABDOMEN and PELVIS: Intraperitoneal space: Unremarkable. No free air. No significant fluid collection. Bones/joints: Moderate to severe degenerative disc disease of the spinal column is noted. Moderate osteoarthritic changes about the sacroiliac joints. Severe levoscoliosis of the thoracolumbar spine. Sacrum and coccyx are unremarkable. No acute fracture. No dislocation. Soft tissues: Ischiorectal fat is clean. Vasculature: Atherosclerotic disease of the abdominal aorta. Flow is demonstrated within the celiac, SMA, the renal arteries, and HUGH. No abdominal aortic aneurysm. Lymph nodes: No retroperitoneal lymphadenopathy. No pelvic or inguinal lymphadenopathy. Other findings: Inflammatory and infectious etiology should be considered. Ischemic etiology is felt to be unlikely. Pelvic sleepless. IMPRESSION: 1. Fatty infiltration of liver. 2. Simple hepatic cyst. 3. Bilateral nonobstructing renal A which are subcentimeter in size. 4. Bilateral extrarenal pelves. 5. Diffuse wall thickening of the transverse colon extending to the descending colon and the sigmoid colon raising concern for inflammatory or infectious etiologies. Ischemic etiology is felt to be unlikely. 6. Fibroid uterus. <MYCVCSECTION> Communications: 09/07/19 18:33 Call From [facility] KOFI Valente on 09/06 18:31 (-07:00)
[2019-09-07 18:57] LABS: APPEARANCE,URINE CLEAR; BILIRUBIN, URINE NEGATIVE (NEGATIVE); COLOR,URINE PALE YELLOW; GLUCOSE, URINE (UA) NEGATIVE (NEGATIVE); KETONES,URINE NEGATIVE (NEGATIVE); LEUKOCYTE ESTERASE ,URINE NEGATIVE (NEGATIVE); NITRITE,URINE NEGATIVE (NEGATIVE); PH,URINE 5 (4.5-8.0); PROTEIN,URINE NEGATIVE (NEGATIVE); UROBILINOGEN,URINE NORMAL MG/DL (0.0-1.0)
[2019-09-07] MEDS ORDERED: CIPRO500 MG PO (19:10)
[2019-09-07] MEDS ORDERED: PROBIOTIC & AC1 EAC1 PO (19:10)
[2019-09-07 19:19] VITALS: BP 182/109
== END 2019-09-07 19:19 | disposition home or self-care (01) ==
LOC: EMR 15:11
DX: M41.35 Thoracogenic scoliosis, thoracolumbar region (principal); K52.9 Noninfective gastroenteritis and colitis, unspecified; N20.0 Calculus of kidney; K76.89 Other specified diseases of liver; M79.7 Fibromyalgia; Z88.2 Allergy status to sulfonamides; K76.0 Fatty (change of) liver, not elsewhere classified; D25.9 Leiomyoma of uterus, unspecified
CPT/HCPCS: 36415; 74177; 80053; 81003; 83690; 85025; 99284; Q9967